=== PATIENT | female | born 1955 | race Caucasian/White ===

== ENCOUNTER 2018-12-25 14:58 | Emergency (ER) | payer MEDICARE, OTHER, SELFPAY ==
[2018-12-25 14:59] VITALS: BP 126/82; PULSE 133; RESP 18; TEMP 35.9; O2SAT 94; BMI 34.4
--- NOTE | 2018-12-25 15:25 | ED.VIS.GEN ---
History of Present Illness Chief Complaint: Nausea/Vomiting Detail of Chief Complaint: Abdominal pain, nausea, vomiting, dizziness Informant: Patient, Family Onset: - - Several weeks Timing: Waxes and wanes Current Severity: Moderate Maximum Severity: Moderate Narrative: Patient presents with chief complaint of nausea, vomiting, abdominal pain, and dizziness. She states that one month ago when she was in [place] she went to an urgent care because she did not feel well. She was given an antibiotic for UTI. This caused increased abdominal pain and diarrhea. She traveled to [place] and went to an urgent care there with these complaints. An ultrasound was performed that showed a 5 cm mass in her liver. She was transferred to a tertiary center where MRI and CT scan were performed. She states that it appears there is only liver masses and no other spread of what is presumed to be liver cancer. Patient then went on vacation with her family to [place]. She went to the emergency room there with abdominal pain. She was given a muscle relaxant and Pyridium for abdominal spasms. She is been taking ibuprofen 600 mg. Patient is now back in the [facility] where her son and [id number] live. She has an appointment with an oncologist at [facility] tomorrow afternoon at 2 PM. Patient presents with continued abdominal pain, nausea, and vomiting. She states she really wants to make this appointment at [facility] tomorrow and was concerned about how weak she is becoming. She has not noted fever or chills. She denies bloody stool. - Past Medical History (1) Liver cancer Status: Acute Past Medical History - Allergies and Home Meds Allergies/Adverse Reactions: Allergies No Known Allergies Allergy (Verified 12/25/18 14:59) Prior records reviewed: Yes Past Medical History: - - Reviewed Surgical History: - - Tubal ligation Lives: Spouse/ Significant Other Review of Systems General: Denies: Chills, Fever Cardiovascular: Denies: Chest pain Respiratory: Denies: Dyspnea, Cough Gastrointestinal: Reports: Nausea, Vomiting, - - Previous diarrhea now resolved. Genitourinary: Denies: Dysuria, Hematuria Skin: Denies: Rash Neurological: Reports: Weakness - Generalized weakness. Denies: Headache Physical Exam Vital Signs/Narrative: Vital Signs Temp Pulse Resp BP Pulse Ox 12/25/18 14:59 96.6 F L 133 H 18 126/82 H 94 General: Well nourished, Well developed Eyes: Perrl ENT: Dry mucous membranes Cardiovascular: Regular rhythm, Tachycardia Respiratory: No distress, CTA bilaterally Abdomen: Soft, - - Mild diffuse tenderness.. Negative for: Guarding, Rebound tenderness Extremities: Nontender Skin: Normal color Neurological: Alert, Oriented x3 Psychological: Normal affect Diagnostic/Tx/Re-eval Impressions Abdomen Ultrasound 12/25/18 17:41 IMPRESSION: 1. Prominent heterogenous liver. There are 2 solid masses as well as a cyst within the liver as above. 2. Gallstones without secondary evidence of acute cholecystitis. 3. Otherwise normal abdominal ultrasound. Electronically Signed: Garcia Allen DO at 18:44 EDT Tel [phone], Service support , 12/25/18 17:41 US Abd [Abdomen Limited] [US] Stat Laboratory Results 12/25/18 12/25/18 12/25/18 15:40 15:40 15:40 WBC Cancelled Corrected WBC Cancelled RBC Cancelled Hgb Cancelled Hct Cancelled MCV Cancelled MCH Cancelled MCHC Cancelled RDW Cancelled RDW Differential Cancelled Plt Count Cancelled MPV Cancelled Immature Gran % (Auto) Cancelled Neut % (Auto) Cancelled Lymph % (Auto) Cancelled Person % (Auto) Cancelled Eos % (Auto) Cancelled Baso % (Auto) Cancelled Absolute Neuts (auto) Cancelled Absolute Lymphs (auto) Cancelled Total Counted Cancelled Neutrophils % (Manual) Cancelled Band Neutrophils % Cancelled Lymphocytes % (Manual) Cancelled Monocytes % (Manual) Cancelled Eosinophils % (Manual) Cancelled Basophils % (Manual) Cancelled Metamyelocytes % Cancelled Myelocytes % Cancelled Promyelocytes % Cancelled Blast Cells % Cancelled Plasma Cell % (Manual) Cancelled Other Cells % Cancelled Nucleated RBCs/100 WBC Cancelled Differential Comment Cancelled Diff Path Review Cancelled Hypersegmented Neuts Cancelled Atypical Lymphocytes Cancelled Reactive Lymphocytes Cancelled Smudge Cells Cancelled Toxic Granulation Cancelled Toxic Vacuolation Cancelled Dohle Bodies Cancelled Shayne Rods Cancelled Platelet Estimate Cancelled Plt Morphology Comment Cancelled RBC Morphology Cancelled Polychromasia Cancelled Hypochromasia Cancelled Poikilocytosis Cancelled Basophilic Stippling Cancelled Anisocytosis Cancelled Microcytosis Cancelled Macrocytosis Cancelled Spherocytes Cancelled Sickle Cells Cancelled Target Cells Cancelled Tear Drop Cells Cancelled Ovalocytes Cancelled Stomatocytes Cancelled [place] Bodies Cancelled Ede Cells Cancelled Bite Cells Cancelled Crenated Cell Cancelled Acanthocytes (Spur) Cancelled Rouleaux Cancelled Schistocytes Cancelled PT Cancelled INR Cancelled APTT Cancelled Sodium Cancelled Potassium Cancelled Chloride Cancelled Carbon Dioxide Cancelled Anion Gap Cancelled BUN Cancelled Creatinine Cancelled Estim Creat Clear Calc Cancelled Est GFR (MDRD) Af Amer Cancelled Est GFR (MDRD) Non-Af Cancelled BUN/Creatinine Ratio Cancelled Glucose Cancelled Calcium Cancelled Total Bilirubin Cancelled Direct Bilirubin Cancelled AST Cancelled ALT Cancelled Alkaline Phosphatase Cancelled Total Protein Cancelled Albumin Cancelled Globulin Cancelled Lipase Cancelled Urine Color Urine Clarity Urine pH Ur Specific [place] Urine Protein Urine Glucose (UA) Urine Ketones Urine Occult Blood Urine Nitrite Urine Bilirubin Urine Urobilinogen Ur Leukocyte Esterase Urine RBC Urine WBC Ur Squamous Epith Cells Urine Bacteria Urine Mucus 12/25/18 12/25/18 12/25/18 16:15 16:15 16:15 WBC 10.0 Corrected WBC RBC 4.29 Hgb 12.8 Hct 37.9 MCV 88.3 MCH 29.8 MCHC 33.8 RDW 13.7 RDW Differential 43.9 Plt Count 116 L MPV 10.6 Immature Gran % (Auto) 2.500 H Neut % (Auto) 73.5 H Lymph % (Auto) 12.4 L Person % (Auto) 10.4 H Eos % (Auto) 0.8 Baso % (Auto) 0.4 Absolute Neuts (auto) 7.3 Absolute Lymphs (auto) 1.24 Total Counted Not Reportable Neutrophils % (Manual) Band Neutrophils % Lymphocytes % (Manual) Monocytes % (Manual) Eosinophils % (Manual) Basophils % (Manual) Metamyelocytes % Myelocytes % Promyelocytes % Blast Cells % Plasma Cell % (Manual) Other Cells % Nucleated RBCs/100 WBC Differential Comment Diff Path Review May foll Hypersegmented Neuts Atypical Lymphocytes Reactive Lymphocytes Smudge Cells Toxic Granulation Toxic Vacuolation Dohle Bodies Shayne Rods Platelet Estimate Plt Morphology Comment RBC Morphology Polychromasia Hypochromasia Poikilocytosis Basophilic Stippling Anisocytosis Microcytosis Macrocytosis Spherocytes Sickle Cells Target Cells Tear Drop Cells Ovalocytes Stomatocytes [place] Bodies [place] Cells Bite Cells Crenated Cell Acanthocytes (Spur) Rouleaux Schistocytes PT 15.4 H INR 1.2 APTT 36.0 Sodium 138 Potassium 4.1 Chloride 107 Carbon Dioxide 23.0 Anion Gap 8 BUN 12 Creatinine 0.59 Estim Creat Clear Calc 85.54 Est GFR (MDRD) Af Amer 131 Est GFR (MDRD) Non-Af 108 BUN/Creatinine Ratio 20.3 H Glucose 101 Calcium 8.6 Total Bilirubin 2.20 H Direct Bilirubin 1.09 H AST 297 H ALT 256 H Alkaline Phosphatase 839 H Total Protein 5.9 L Albumin 2.6 L Globulin 3.3 Lipase 1079 H Urine Color Urine Clarity Urine pH Ur Specific [place] Urine Protein Urine Glucose (UA) Urine Ketones Urine Occult Blood Urine Nitrite Urine Bilirubin Urine Urobilinogen Ur Leukocyte Esterase Urine RBC Urine WBC Ur Squamous Epith Cells Urine Bacteria Urine Mucus 12/25/18 16:25 WBC Corrected WBC RBC Hgb Hct MCV MCH MCHC RDW RDW Differential Plt Count MPV Immature Gran % (Auto) Neut % (Auto) Lymph % (Auto) Person % (Auto) Eos % (Auto) Baso % (Auto) Absolute Neuts (auto) Absolute Lymphs (auto) Total Counted Neutrophils % (Manual) Band Neutrophils % Lymphocytes % (Manual) Monocytes % (Manual) Eosinophils % (Manual) Basophils % (Manual) Metamyelocytes % Myelocytes % Promyelocytes % Blast Cells % Plasma Cell % (Manual) Other Cells % Nucleated RBCs/100 WBC Differential Comment Diff Path Review Hypersegmented Neuts Atypical Lymphocytes Reactive Lymphocytes Smudge Cells Toxic Granulation Toxic Vacuolation Dohle Bodies Shayne Rods Platelet Estimate Plt Morphology Comment RBC Morphology Polychromasia Hypochromasia Poikilocytosis Basophilic Stippling Anisocytosis Microcytosis Macrocytosis Spherocytes Sickle Cells Target Cells Tear Drop Cells Ovalocytes Stomatocytes [place] Bodies Ede Cells Bite Cells Crenated Cell Acanthocytes (Spur) Rouleaux Schistocytes PT INR APTT Sodium Potassium Chloride Carbon Dioxide Anion Gap BUN Creatinine Estim Creat Clear Calc Est GFR (MDRD) Af Amer Est GFR (MDRD) Non-Af BUN/Creatinine Ratio Glucose Calcium Total Bilirubin Direct Bilirubin AST ALT Alkaline Phosphatase Total Protein Albumin Globulin Lipase Urine Color DARK YELLOW Urine Clarity Clear Urine pH 6.0 Ur Specific [place] 1.010 Urine Protein 30 H Urine Glucose (UA) Normal Urine Ketones 15 H Urine Occult Blood 10 H Urine Nitrite Positive H Urine Bilirubin 6 H Urine Urobilinogen 8 H Ur Leukocyte Esterase 500 H Urine RBC 0 SEEN Urine WBC 10-25 SEEN Ur Squamous Epith Cells 0-5 SEEN Urine Bacteria 1+ Urine Mucus 0 SEEN - Medical Decision Making Patient was given 2 doses of morphine here along with Zofran for nausea control. On repeat evaluation she feels significantly improved. Test results were discussed with her and at bedside. She does have evidence of pancreatitis as well as a urinary tract infection. She was given a dose of IV Rocephin for her UTI and a urine culture was sent. Patient is very concerned about making her doctor's appointment at the [facility] tomorrow afternoon at 2 PM. I offered to call [facility] to see if I could transfer her there for pancreatitis, however could not assure her that her doctor would see her at the same time tomorrow. At this time she is refusing admission. She will be sent home with pain medication and nausea meds along with antibiotics. She is to follow a bland diet and follow-up with her doctor tomorrow as scheduled. She is encouraged to return for any worsening symptoms or concerns. ED Disposition - Plan for ED Patient: Disposition: Home or Assisted Living Diagnosis: Pancreatitis, Liver masses, Cystitis Instructions: Pancreatitis, Urinary Tract Infections in Women Prescriptions: Cephalexin [Keflex] 500 mg PO Q6 #20 capsule Oxycodone [Oxyir] 5 mg PO Q6H PRN PRN 3 Days #20 tablet PRN Reason: Pain Ondansetron [Zofran Odt] 4 mg PO Q8H PRN PRN #10 tablet PRN Reason: Nausea Additional Instructions: Follow-up with your specialist tomorrow as scheduled.
[2018-12-25] MEDS: 0.9% Normal Saline 1,000 ML 150 ML IV (15:46)
[2018-12-25] MEDS: 0.9% Normal Saline 1,000 ML 1000 ML IV (15:46)
[2018-12-25] MEDS: Ondansetron 4 MG/2 ML Vial IV ×2 (15:46→21:24)
[2018-12-25] MEDS: Morphine 4 MG/ML Syringe IV ×3 (15:46→21:24)
--- NOTE | 2018-12-25 16:10 | NURSING ---
Addendum entered by Karley Garcia 12/25/18 16:24: CBCD HEMOLIZED, CBCD CLOTTED Original Note: COAGS HEMOLIZED, CBCD TOO SHORT
[2018-12-25 16:30] LABS: Basophil# 0.04 X10^3/uL; Basophil% 0.4 % (0-1); Hemoglobin 12.8 g/dl (12.0-15.0); Mean Platelet Vol. 10.6 fl (6.2-12.0); Platelet Count 116 K/mm3 (150-450)
[2018-12-25 16:30] LABS: Mucous, Urine 0 SEEN /hpf (<or=2+); Red Blood Cells-Urine 0 SEEN /hpf (0-5)
[2018-12-25 16:31] LABS: Glucose, Dipstick Normal (Normal); Ketone-Dipstick 15 mg/dl (Negative); Leukocyte Esterase-Dipstick 500 /ul (Negative); Nitrite-Dipstick Positive (Negative); Occult Blood-Urine 10 /ul (Negative); Protein-Dipstick 30 mg/dl (Negative); Urine Clarity Clear (Clear); Urine Urobilinogen 8 mg/dl (Normal)
[2018-12-25 16:37] LABS: Color, Urine DARK YELLOW (Yellow); Urine Bilirubin Dipstick 6 mg/dL (Negative)
[2018-12-25 16:39] LABS: Hematocrit 37.9 % (37-47); Mean Corp Hgb Conc 33.8 g/gl (32-36); Mean Corpuscular Hgb 29.8 pg (27.0-32.0); Mean Corpuscular Volume 88.3 fL (81-99); Red Blood Count 4.29 M/mm3 (4.2-5.4)
[2018-12-25 16:41] LABS: RBC Distribution Width CV 13.7 % (11.6-14.6); RBC Distribution Width SD 43.9 fl (35.1-43.9)
[2018-12-25 16:42] LABS: Absolute Neutrophil Count 7.3 X10^3/uL (2.0-7.7); Eosinophils% 0.8 % (0-5); Lymphocyte # 1.24 X10^3/ul (4.0); Lymphocyte % 12.4 % (19-41); Monocyte% 10.4 % (0-10); Neutrophil # 7.31 X10^3/uL (2.7-7.7); Neutrophil % 73.5 % (47-70); POSITIVE COUNT YES; POSITIVE DIFFERENTIAL NO; POSITIVE MORPHOLOGY YES
[2018-12-25 16:43] LABS: Absolute Lymphocyte Count 1.24 X10^3/ul (0.83-4.51); Eosinophil# 0.08 X10^3/uL; Monocyte# 1.04 X10^3/uL
[2018-12-25 16:52] LABS: International Normalized Ratio 1.2; Prothrombin Time (Protime)PT. 15.4 SECONDS (11.7-14.9)
[2018-12-25 17:00] VITALS: BP 146/86; PULSE 100; RESP 20; O2SAT 93
[2018-12-25 17:16] LABS: AST(SGOT) 297 U/L (15-37); Alanine Aminotransfer ALT/SGPT 256 U/L (13-56); Albumin, Serum 2.6 g/dL (3.2-5.0); Alkaline Phosphatase 839 U/L (45-117); Anion Gap 8 (5-15); BUN 12 mg/dL (7-18); BUN/Creat Ratio 20.3 RATIO (10-20); Bilirubin, Direct 1.09 mg/dL (0.00-0.30); Calcium,Total 8.6 mg/dL (8.5-10.1); Chloride 107 mmol/L (98-107); Creatinine, Serum 0.59 mg/dL (0.55-1.02); EST Glomerular Filtration Rate 108 mL/min (>60); Est Glom Filt Rate - Afr Amer 131 mL/min (>60); Estimated Creatinine Clearance 85.54 ml/min; Globulin 3.3 g/dL (2.2-4.2); Glucose 101 mg/dL (74-106); Lipase 1079 U/L (73-393); Potassium 4.1 mmol/L (3.5-5.1); Protein, Total 5.9 g/dL (6.4-8.2); Sodium Level 138 mmol/L (136-145)
[2018-12-25 17:27] LABS: Bacteria 1+ /hpf (None Seen); Squamous Epithelial Cells - UA 0-5 SEEN /hpf (5-10); White Blood Cells 10-25 SEEN /hpf (0-5)
--- NOTE | 2018-12-25 17:41 | US_ITS ---
STUDY: ABDOMINAL ULTRASOUND - RIGHT UPPER QUADRANT REASON FOR VISIT: Female, 63 years old. Upper abdominal pain beginning after taking antibiotics a few weeks ago. TECHNIQUE: Ultrasound evaluation of the right upper quadrant was performed with real-time and static null-scale imaging. TECHNICAL QUALITY: Adequate. COMPARISON: None. FINDINGS: Liver: The liver measures 17.7 cm. There is a heterogeneous echogenicity of the liver. The bile ducts are within normal limits. There is hepatic color flow. The direction of portal flow is hepatopetal. There is a 5.5 x 5.0 x 4.5 cm echogenic mass with hypoechoic center in the lower left liver, segment 3. In the right liver there is a 2.1 x 1.6 x 2 cm cyst as well as a ill-defined 3.1 x 2.8 x 2.2 cm echogenic focus with hypoechoic rim seen just anterior to the cyst. Gallbladder: Normal distended gallbladder. The gallbladder wall measures 3 mm. There is a negative sonographic Razo's sign. There is no pericholecystic fluid. There are multiple tiny gallstones. Common Bile Duct (C.B.D.): The common bile duct measures 7 mm. Pancreas: Normal size of the head, body and proximal tail of the pancreas. The distal tail is obscured by bowel gas. There is normal echogenicity of the pancreas. There is no demonstrated pancreatic mass or cyst. Right Kidney: Normal size of the right kidney. The right kidney measures 10.8 cm. Normal renal cortex. The right cortex measures 1.0 cm. There is no demonstrated renal mass or cyst. There is no right hydronephrosis. US/Abdomen Limited IMPRESSION: 1. Prominent heterogenous liver. There are 2 solid masses as well as a cyst within the liver as above. 2. Gallstones without secondary evidence of acute cholecystitis. 3. Otherwise normal abdominal ultrasound. Electronically Signed: Garcia Allen DO at 18:44 EDT Tel [phone], Service support ,
[2018-12-25] MEDS: Ceftriaxone 1 GM/50 ML BAG IV (18:00)
[2018-12-25 19:23] VITALS: BP 139/75; PULSE 93; RESP 18; O2SAT 91
[2018-12-25 21:25] VITALS: BP 147/77; PULSE 95
[2018-12-27 13:50] LABS: Pathologist Review Reviewed
== END 2018-12-25 22:00 | disposition home or self-care (01) ==
PROVIDERS: Emergency Provider Emergency Medicine
DX: K85.90 Acute pancreatitis without necrosis or infection, unspecified (principal); R16.0 Hepatomegaly, not elsewhere classified; N30.90 Cystitis, unspecified without hematuria
CPT/HCPCS: 76705; 80048; 80076; 81001; 83690; 85025; 85610; 85730; 87086; 87088; 96361; 96365; 96366; 96375; 96376; 99285; J7030; A4216; J2405

== ENCOUNTER 2018-12-31 15:00 | Inpatient (IN) | payer MEDICARE, OTHER, SELFPAY ==
[2018-12-31] VITALS (19 sets, daily range): BP systolic 113–153; BP diastolic 54–95; PULSE 108–124; RESP 18–27; TEMP 36.8–37.2; O2SAT 88–96; BMI 32.1; BMI 36.8; BMI 36.9
--- NOTE | 2018-12-31 15:08 | EKG12_ITS ---
Test Reason : Blood Pressure : / mmHG Vent. Rate : 118 BPM Atrial Rate : 118 BPM P-R Int : 168 ms QRS Dur : 078 ms QT Int : 308 ms P-R-T Axes : 042 -49 029 degrees QTc Int : 431 ms Sinus tachycardia Indeterminate axis Low voltage QRS Cannot rule out Inferior infarct , age undetermined Possible Anterolateral infarct , age undetermined Abnormal ECG Confirmed by CHRISTAL BERGER, ROBSON ([id number]), editor book SOLIS FERGUSON ([id number]) on 01/02/2019 1:43:25 PM Referred By: ANTOINETTE Confirmed By:ROBSON SIEGEL MD
--- NOTE | 2018-12-31 15:20 | CT_ITS ---
STUDY: CT BRAIN WITHOUT CONTRAST REASON FOR EXAM: Female, 63 years old. Mental status change RADIATION DOSAGE (If Supplied By Facility): CTDIvol = ( 44.99 ) mGy, DLP = ( 798.92 ) mGycm TECHNIQUE: Transaxial CT imaging of the brain was performed without administration of intravenous contrast material. Individualized dose optimization techniques were used for this CT. COMPARISON: No relevant priors. FINDINGS: Normal soft tissue structures. Normal calvarium. Normal size ventricles and extra-axial spaces for the patient's age. Normal white matter tracts of the cerebral hemispheres. There is a 4 mm hypodensity in the region of the left basal ganglia. Normal brainstem. Normal cerebellum. There is no intracranial hemorrhage. There are no findings of an acute ischemic infarction. Normal visualized paranasal sinuses. CT/Brain/Head without Contrast IMPRESSION: No acute findings, if there is still clinical concern for metastatic disease then a MRI brain with and without contrast exam would be recommended 4 mm hypodensity within the left basal ganglia which can be prominent sulcus versus old lacunar infarct Electronically Signed: Nic Michael, at 17:34 EDT Tel , Service support ,
--- NOTE | 2018-12-31 15:20 | RAD_ITS ---
STUDY: X-RAY CHEST REASON FOR EXAM: Female, 63 years old. Altered level of consciousness, unable to follow instructions TECHNIQUE: AP COMPARISON: None. FINDINGS: EKG leads project over the chest. Lungs are underexpanded with bibasilar atelectasis. There is no demonstrated pleural abnormality. Normal size heart. Normal mediastinum and loki. Normal visualized pulmonary arteries. Normal visualized aortic arch and descending thoracic aorta. No acute bony process. There is no demonstrated abnormality of the visualized soft tissue structures of the upper abdomen. RAD/Chest 1 View (Portable) IMPRESSION: 1. Hypoinflation with bibasilar atelectasis. Electronically Signed: J Carlos Carmona MD at 15:45 EDT , Service support ,
--- NOTE | 2018-12-31 15:21 | ED.VISSUMM ---
- ER Visit Summary Date of Service: 12/31/18 Chief Complaint: Altered mental status History of Present Illness: The patient is a 63 F presenting with altered mental status. Patient presents per EMS with decreased responsiveness. Patient is a new patient of Dr. 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 She is scheduled to start chemotherapy tomorrow. She was seen by Dr. Lr on Tuesday and started on MS Contin, Roxanol, and Haldol. Family states they have been giving her the MS Contin every 8 hrs and the Roxanol every 3 hrs and Haldol for nausea. They have noticed progressively increasing fatigue and decreased responsiveness. Physical Examination: Vitals are stable. Patient is afebrile. Alert no acute distress. HEENT exam is unremarkable. Neck is supple. Lungs are clear and equal bilaterally. Heart is regular and tachycardic Abdomen is soft distended with diffuse tenderness, no rebound or guarding Extremities are unremarkable. Skin is warm and dry. Erythema with blistering left hip No focal neurologic deficit. Opens eyes to voice. Follows commands. Remainder of exam is unremarkable. Emergency Department Course and Treatment: Family notes that she has been using a heating pad and believes that the heating pad was overlying her left hip. EKG is sinus at a rate of 118. She was given IV fluids, Narcan. She is now awake and alert following Narcan. She is complaining of severe abdominal pain. CBC normal except platelets 78. Chemistries show sodium 128, potassium 5.3, BUN 39, creatinine 1.07. Liver enzymes show total bili 5.9, direct bili 4.4, alk phos 949, ALT 245, AST 997. Urinalysis shows positive nitrite, 0-5 white blood cells. Troponin is negative. Lactic acid 4.4. D-dimer over 20. Ammonia 95. Patient was given IV fluids. She was given fentanyl IV. Chest x-ray shows hypoinflation, atelectasis. CTA chest shows limited by patient motion artifact. No central or obvious segmental pulmonary embolism. Trace bilateral pleural effusions. Bilateral lower lobe atelectasis. Hepatomegaly with hepatic steatosis. Patchy parenchymal atelectasis. Blood cultures were sent. She was given Zosyn IV. Discussed with Dr. Brumfield. Patient will not start chemotherapy tomorrow. He is concerned about possible DIC and patient can be admitted to [facility]. Discussed CODE STATUS with family. They are aware of the severity of her illness and are awaiting discussion with her son. She will be full code until the remainder of her family arrives. Discussed with the hospitalist for admission. Disposition: Admission Impression: Elevated liver enzymes, neuroendocrine tumor, concern for DIC This note was generated with [employer] dictation software. It may contain incorrect words, spelling, and punctuation that were not noted in review of the chart prior to signing ED Disposition - Plan for ED Patient: Referrals: [facility] Doctor,Out of [Primary Care Provider] -
[2018-12-31 15:52] LABS: Absolute Nucleated RBC Count 0.73 10^3/uL (0-5); Hematocrit 41.4 % (37-47); Hemoglobin 13.5 g/dL (12.0-15.0); Mean Corp Hgb Conc 32.6 g/dL (32-36); Mean Corpuscular Hgb 29.7 pg (27.0-32.0); Mean Corpuscular Volume 91.2 fL (81-99); Mean Platelet Vol. 10.7 fl (6.2-12.0); POSITIVE COUNT YES; POSITIVE MORPHOLOGY YES; Platelet Count 78 K/mm3 (150-450); RBC Distribution Width CV 14.6 % (11.6-14.6); RBC Distribution Width SD 47.5 fl (35.1-43.9); Red Blood Count 4.54 M/mm3 (4.2-5.4)
[2018-12-31 15:53] LABS: Differential Indicated MANUAL DIFF; NRBC Flagged by Analyzer 8.9 % (0-5)
[2018-12-31] MEDS: Naloxone 0.4 MG/ML Syringe IV (16:04)
[2018-12-31 16:15] LABS: Red Blood Cells-Urine 0 SEEN /hpf (0-5)
[2018-12-31] MEDS: 0.9% Normal Saline 1,000 ML 999 ML IV ×2 (16:17→20:15)
[2018-12-31] MEDS: fentaNYL 100 MCG/2 ML Ampul 50 MCG IV (16:18)
[2018-12-31 16:24] LABS: Glucose, Dipstick Normal (Normal); Ketone-Dipstick 5 mg/dl (Negative); Leukocyte Esterase-Dipstick 25 /ul (Negative); Nitrite-Dipstick Positive (Negative); Occult Blood-Urine 25 /ul (Negative); Protein-Dipstick 30 mg/dl (Negative); Urine Clarity Clear (Clear); Urine Urobilinogen 8 mg/dl (Normal)
[2018-12-31 16:29] LABS: AST(SGOT) 997 U/L (15-37); Alanine Aminotransfer ALT/SGPT 245 U/L (13-56); Albumin, Serum 2.5 g/dL (3.2-5.0); Alkaline Phosphatase 949 U/L (45-117); Anion Gap 10 (5-15); BUN 39 mg/dL (7-18); BUN/Creat Ratio 36.4 RATIO (10-20); Bilirubin, Direct 4.46 mg/dL (0.00-0.30); Calcium,Total 8.7 mg/dL (8.5-10.1); Chloride 95 mmol/L (98-107); Creatinine, Serum 1.07 mg/dL (0.55-1.02); EST Glomerular Filtration Rate 55 mL/min (>60); Est Glom Filt Rate - Afr Amer 66 mL/min (>60); Estimated Creatinine Clearance 56.68 ml/min; Globulin 3.3 g/dL (2.2-4.2); Glucose 117 mg/dL (74-106); Lactic Acid 4.4 mmol/L (0.4-2.0); Potassium 5.3 mmol/L (3.5-5.1); Protein, Total 5.8 g/dL (6.4-8.2); Sodium Level 128 mmol/L (136-145)
[2018-12-31 16:30] LABS: Corrected WBC 7.1 K/mm3 (4.4-11.0); Eosinophil 2 % (0-5); Lymphocyte 33 % (19-41); Monocyte 6 % (0-10); Neutrophil-Band 13 % (0-5); Neutrophil-Segmented 46 % (47-70); Nucleated Red Bld Cells,Manual 14 % (0-5)
[2018-12-31 16:31] LABS: Platelet Estimate MOD DEC (ADEQ); Polychromasia 1+; Red Cell Morphology N CYTIC NORMAL (NORM C&C)
[2018-12-31 16:32] LABS: Color, Urine DARK YELLOW (Yellow); Urine Bilirubin Dipstick 6 mg/dL (Negative)
[2018-12-31 16:33] LABS: White Blood Cells 0-5 SEEN /hpf (0-5)
[2018-12-31 16:33] LABS: Absolute Lymphocyte Count 2.34 X10^3/uL (0.83-4.51); Absolute Neutrophil Count 4.2 X10^3/uL (2.0-7.7)
--- NOTE | 2018-12-31 16:36 | CT_ITS ---
STUDY: CTA CHEST REASON FOR EXAM: Female, 63 years old. Severe chest pain, mental status change RADIATION DOSAGE (If Supplied By Facility): CTDIvol = ( 19.03 ) mGy, DLP = ( 2041.68 ) mGycm TECHNIQUE: The examination was performed with the intravenous administration of 100 IV Isovue 370. Post-processing of the angiographic images was performed, with multiplanar reformation and 3D reconstruction. Individualized dose optimization techniques were used for this CT. COMPARISON: None. FINDINGS: Exam is limited by patient motion artifact. There is no demonstrated pulmonary embolism. Normal thoracic aorta and visualized great vessels. There is no demonstrated aortic dissection. Normal heart and pericardium. Normal mediastinum. Normal hilar regions. There are trace bilateral pleural effusions. There are patchy areas of atelectasis in bilateral lung bases. Normal chest wall structures. No acute bony process. The liver is enlarged and diminished in density. CT/CTA Chest W/WO Contrast IMPRESSION: 1. Limited by patient motion artifact. No central or obvious segmental pulmonary embolism. 2. Trace bilateral pleural effusions. 3. Bilateral lower lobe atelectasis. 4. Hepatomegaly with hepatic steatosis. 5. Patchy parenchymal atelectasis. Electronically Signed: J Carlos Carmona MD at 17:33 EDT , Service support ,
--- NOTE | 2018-12-31 16:36 | CT_ITS ---
STUDY: CT ABDOMEN AND PELVIS WITH CONTRAST REASON FOR EXAM: Female, 63 years old. Abdominal pain, tumor RADIATION DOSAGE (If Supplied By Facility): CTDIvol = ( 19.03 ) mGy, DLP = ( 2041.68 ) mGycm TECHNIQUE: Transaxial images were obtained from the dome of the diaphragm to the symphysis pubis without oral contrast. 100 IV Isovue 370 was administered. Sagittal and coronal images were reconstructed. Individualized dose optimization techniques were used for this CT. COMPARISON: None. FINDINGS: There is small left pleural effusion. There is left basilar subsegmental atelectasis. There is mild bibasilar subsegmental atelectasis. There is linear subsegmental atelectasis lingula and right middle lobe. The visualized portions of the heart are within normal limits. There are innumerable hypodense hepatic masses. The largest measures 6.1 x 6.9 cm within the left lobe of the liver. Normal gallbladder and extrahepatic biliary system. Normal spleen. There is 6 mm hypodense lesion within the tail of the pancreas. There is also an inhomogeneous hypodensity within the body of pancreas possible additional pancreatic lesions. Normal bilateral adrenal glands. Normal right kidney. Normal left kidney. Normal visualized stomach. Normal small intestine. There is colonic diverticulosis no evidence for acute diverticulitis The appendix is visualized and appears normal. Normal abdominal aorta. Normal inferior vena cava. Normal retroperitoneum. Normal urinary bladder. Normal abdominal wall. There is mild bony sclerosis SI joints. There are degenerative changes of the lower thoracic and lumbar spine. CT/Abdomen/Pelvis W IV Cont ONLY IMPRESSION: Diffuse hepatic metastases 6 mm hypodense possible malignant lesion within the tail of the pancreas and questionable additional lesions in the body of the pancreas Small left pleural effusion Extensive colonic diverticulosis without evidence for diverticulitis Small left pleural effusion Scattered areas of subsegmental atelectasis Multilevel degenerative changes lumbar spine, mild bilateral sacroiliitis Electronically Signed: Nic Michael, at 17:53 EDT Tel , Service support ,
[2018-12-31 16:37] LABS: D-Dimer Quantitative (DVT/PE) > 20.00 FEU/ug/m (0.27-0.49)
[2018-12-31 16:37] LABS: Bacteria 1+ /hpf (None Seen); Squamous Epithelial Cells - UA 5-10 SEEN /hpf (5-10)
[2018-12-31 16:38] LABS: Fine Granular Cast- Urine 0-5 SEEN /lpf (0-5); Hyaline Cast 0-5 SEEN /lpf (0-5); Mucous, Urine RARE /hpf (<or=2+)
--- NOTE | 2018-12-31 16:45 | ED.RN ---
LAB CALLS WITH CRITICAL RESULT, D-DIMER >20, DR. CURRY MADE AWARE.
--- NOTE | 2018-12-31 18:32 | NURSING ---
verbal order from MD maldonado to stop IV fluid bolus after 2nd liter infused after her consult call with Dr. Brumfield.
[2018-12-31 18:43] LABS: International Normalized Ratio 1.5; Prothrombin Time (Protime)PT. 17.9 SECONDS (11.7-14.9)
[2018-12-31 18:44] LABS: Partial Thromboplast Time 39.4 Seconds (24.1-36.2)
--- NOTE | 2018-12-31 19:32 | PCM.HP.STD ---
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 Lr recently came to ED with altered mental status, decreased responsiveness and confusion. As per the family, they saw Dr. Arroyo on last Tuesday and was given MS Contin, Roxanol and Haldol. She was getting MS Contin every 8 hours along with Roxanol every 8 hours Haldol for nausea resulting into decreased responsiveness. The patient was given Marcaine that improved her responsiveness. In ED, she is tachycardic, heart rate 118/min, respiratory rate 25-27 and pulse ox 88% on room air. Lactic acid is 4.4 along with elevated liver enzymes, total bili 5.9 went up from 2.2 last week mainly direct hyperbilirubinemia along with alk phos 950, ALT 245, AST 1000. Furthermore, patient had CTPA and CT abdomen and CT brain. CT abdomen shows diffuse hepatic metastases with 6 mm hypodense lesion in in body of pancreas possible malignant lesion. CTPA was negative for PE but trace bilateral pleural effusion and bilateral lower lobe atelectasis. CT brain did not show any acute finding. Past Medical History Past Medical History (Chronic Problems): Chronic Problems Liver cancer (Chronic) Allergies No Known Allergies Allergy (Verified 12/31/18 15:08) Home Medications: Ambulatory Orders Medication Instructions Recorded Haloperidol [Haldol] 0.5 mg PO BID 12/31/18 Ondansetron [Zofran Odt] 8 mg PO Q8H PRN PRN 12/31/18 Sennosides [Senna] 2 tab PO DAILY 12/31/18 morphine SR tablet [MS Contin] 15 mg PO Q8H 12/31/18 morphine solution (IR) [Roxanol 5 - 10 mg PO Q3H PRN 12/31/18 (IR oral solution)] Surgical History: - - Tubal ligation Smoking Status: Never smoker Alcohol: None Drugs: None Review of Systems Respiratory: Reports: Shortness of Breath Unable to obtain accurate/complete ROS d/t: Patient is very groggy, confused VTE Information - Inpt Only VTE Present on Admission: No VTE Mechan Device Prophylaxis: None VTE Pharm Prophylaxis ordered?: Yes Patient Problems: Active and Suspected Problems acute on chr liver failure (Acute) Severe sepsis (Acute) - Physical Exam General: Confused, Disoriented, Lethargic HEENT: Atraumatic, PERRLA, EOMI, Normocephalic Oral: Dry Mucosa Neck: Supple, No JVD, Negative Carotid Bruits Lungs: No rhonchi, No wheeze, No rales, Diminished - Air entry is diminished in bilateral lung bases. Cardiovascular: Regular Rhythm, Normal S1, Normal S2, No murmurs, Tachycardic Abdomen: Bowel Sounds Present, Soft, Non-Distended, Tender - Tenderness present mainly over right upper quadrant and mid abdomen. Extremities: No edema, Capillary Refill Less than 3 Seconds Skin: No rashes, No breakdown Musculoskeletal: No Tenderness to Palpation of Joints or Extremities, Arthritic Changes Neurological: Cranial nerves II-XII grossly intact, Deep Tendon Reflexes 2+/4 and Symmetrical, - - Patient is lethargic and groggy Psych/Mental Status: Normal Affect, Appropriate Vital Signs Temp Pulse Resp BP Pulse Ox 98.3 F 120 H 20 H 140/79 H 92 12/31/18 18:24 12/31/18 19:00 12/31/18 19:00 12/31/18 19:00 12/31/18 19:00 Oxygen Flow Rate (L/min) 2 Oxygen Delivery Method Nasal Cannula Weight: 223 lb 8.78 oz Body Mass Index (BMI) 32.1 Laboratory Tests Past 24 Hrs 12/31/18 12/31/18 12/31/18 15:30 15:30 15:30 WBC Not Reportable Corrected WBC 7.1 RBC 4.54 Hgb 13.5 Hct 41.4 MCV 91.2 MCH 29.7 MCHC 32.6 RDW Std Deviation 47.5 H RDW Coeff of Melissa 14.6 Plt Count 78 L MPV 10.7 Neut % (Auto) Not Reportable Absolute Neuts (auto) 4.2 Absolute Lymphs (auto) 2.34 Absolute Nucleated RBC 0.73 Neutrophils % (Manual) 46 L Band Neutrophils % 13 H Lymphocytes % (Manual) 33 Monocytes % (Manual) 6 Eosinophils % (Manual) 2 Nucleated RBC % 8.9 H Nucleated RBCs/100 WBC 14 H Diff Path Review May foll Platelet Estimate MOD DEC RBC Morphology N CYTIC Polychromasia 1+ PT INR APTT D-Dimer Quant (PE/DVT) Sodium 128 L Potassium 5.3 H Chloride 95 L Carbon Dioxide 23.0 Anion Gap 10 BUN 39 H Creatinine 1.07 H Estim Creat Clear Calc 56.68 Est GFR (MDRD) Af Amer 66 Est GFR (MDRD) Non-Af 55 L BUN/Creatinine Ratio 36.4 H Glucose 117 H Lactic Acid 4.4 H* Calcium 8.7 Total Bilirubin 5.90 H Direct Bilirubin 4.46 H AST 997 H ALT 245 H Alkaline Phosphatase 949 H Ammonia Troponin I < 0.015 Total Protein 5.8 L Albumin 2.5 L Globulin 3.3 Urine Color Urine Clarity Urine pH Ur Specific [place] Urine Protein Urine Glucose (UA) Urine Ketones Urine Occult Blood Urine Nitrite Urine Bilirubin Urine Urobilinogen Ur Leukocyte Esterase Urine RBC Urine WBC Ur Squamous Epith Cells Urine Bacteria Hyaline Casts Fine Granular Casts Urine Mucus 12/31/18 12/31/18 12/31/18 15:30 15:30 15:50 WBC Corrected WBC RBC Hgb Hct MCV MCH MCHC RDW Std Deviation RDW Coeff of Melissa Plt Count MPV Neut % (Auto) Absolute Neuts (auto) Absolute Lymphs (auto) Absolute Nucleated RBC Neutrophils % (Manual) Band Neutrophils % Lymphocytes % (Manual) Monocytes % (Manual) Eosinophils % (Manual) Nucleated RBC % Nucleated RBCs/100 WBC Diff Path Review Platelet Estimate RBC Morphology Polychromasia PT 17.9 H INR 1.5 APTT 39.4 H D-Dimer Quant (PE/DVT) > 20.00 H* Sodium Potassium Chloride Carbon Dioxide Anion Gap BUN Creatinine Estim Creat Clear Calc Est GFR (MDRD) Af Amer Est GFR (MDRD) Non-Af BUN/Creatinine Ratio Glucose Lactic Acid Calcium Total Bilirubin Direct Bilirubin AST ALT Alkaline Phosphatase Ammonia 95.0 H Troponin I Total Protein Albumin Globulin Urine Color Urine Clarity Urine pH Ur Specific [place] Urine Protein Urine Glucose (UA) Urine Ketones Urine Occult Blood Urine Nitrite Urine Bilirubin Urine Urobilinogen Ur Leukocyte Esterase Urine RBC Urine WBC Ur Squamous Epith Cells Urine Bacteria Hyaline Casts Fine Granular Casts Urine Mucus 12/31/18 16:10 WBC Corrected WBC RBC Hgb Hct MCV MCH MCHC RDW Std Deviation RDW Coeff of Melissa Plt Count MPV Neut % (Auto) Absolute Neuts (auto) Absolute Lymphs (auto) Absolute Nucleated RBC Neutrophils % (Manual) Band Neutrophils % Lymphocytes % (Manual) Monocytes % (Manual) Eosinophils % (Manual) Nucleated RBC % Nucleated RBCs/100 WBC Diff Path Review Platelet Estimate RBC Morphology Polychromasia PT INR APTT D-Dimer Quant (PE/DVT) Sodium Potassium Chloride Carbon Dioxide Anion Gap BUN Creatinine Estim Creat Clear Calc Est GFR (MDRD) Af Amer Est GFR (MDRD) Non-Af BUN/Creatinine Ratio Glucose Lactic Acid Calcium Total Bilirubin Direct Bilirubin AST ALT Alkaline Phosphatase Ammonia Troponin I Total Protein Albumin Globulin Urine Color DARK YELLOW Urine Clarity Clear Urine pH 5.0 Ur Specific [place] 1.020 Urine Protein 30 H Urine Glucose (UA) Normal Urine Ketones 5 H Urine Occult Blood 25 H Urine Nitrite Positive H Urine Bilirubin 6 H Urine Urobilinogen 8 H Ur Leukocyte Esterase 25 H Urine RBC 0 SEEN Urine WBC 0-5 SEEN Ur Squamous Epith Cells 5-10 SEEN Urine Bacteria 1+ Hyaline Casts 0-5 SEEN Fine Granular Casts 0-5 SEEN Urine Mucus RARE Assessment/Plan All Active Problems acute on chr liver failure (Acute) Severe sepsis (Acute) The patient is a 63 year old F with 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 Lr recently came to ED with altered mental status, decreased responsiveness and confusion. As per the family, they saw Dr. Arroyo on last Tuesday and was given MS Contin, Roxanol and Haldol. She was getting MS Contin every 8 hours along with Roxanol every 8 hours Haldol for nausea resulting into decreased responsiveness. The patient was given Marcaine that improved her responsiveness. In ED, she is tachycardic, heart rate 118/min, respiratory rate 25-27 and pulse ox 88% on room air. Furthermore, patient had CTPA and CT abdomen and CT brain. CT abdomen shows diffuse hepatic metastases with 6 mm hypodense lesion in in body of pancreas possible malignant lesion. CTPA was negative for PE but trace bilateral pleural effusion and bilateral lower lobe atelectasis. CT brain did not show any acute finding. 1. Elevated lactic acid possible related to severe sepsis or acute on chronic liver failure: Patient has bandemia 13% neutrophils 46% but normal WBC count. The patient is being admitted in ICU as the family wants to keep her alive until his sons arrive from [place] and probably will take about 6 to 8 hours. Patient is on IV fluid normal saline resuscitation. Currently blood pressure 126/91, heart rate 118. Monitor intake and output. On broad-spectrum IV antibiotics Zosyn. MRSA nasal screen. Discussed with Dr. Goodrich. 2. Acute encephalopathy possible related to opioid medication and metabolic/hepatic encephalopathy without coma: Patient is still confused and disoriented. Serum ammonia is 95. Lactulose and Xifaxan ordered. 3. Acute on chronic liver failure secondary to wide metastasis, possible exacerbated by opioids: Hold opioids. Lactic acid is 4.4 along with elevated liver enzymes, total bili 5.9 went up from 2.2 last week mainly direct hyperbilirubinemia along with alk phos 950, ALT 245, AST 1000. Platelet count is 78,000 down from 116,000 last week suggestive of liver failure. Oncologist has been consulted from ER and Dr. Johnson she will see her tomorrow. 4. DVT prophylaxis: On Lovenox 40 mg subcu daily. Goal of life/advance directive: Discussed with the patient's son, Mr. Lee and her sister Ms. Ferraro, patient's [id number] who wants the patient to be alive for about 6 to 8 hours until her other sons arrive from [place]. Patient's family understand in the meantime if she goes into cardiac arrest/respiratory substrate will need full CPR, intubation/vent management and possible central venous catheterization for vasopressor. I think after patient sensori they will make decision on palliative/hospice care. Total time spent in [id number] encounter in discussion of advanced directive 18 minutes. Laboratory Results 12/31/18 15:30: WBC Not Reportable, Corrected WBC 7.1, RBC 4.54, Hgb 13.5, Hct 41.4, MCV 91.2, MCH 29.7, MCHC 32.6, RDW Std Deviation 47.5 H, RDW Coeff of Melissa 14.6, Plt Count 78 L, MPV 10.7, Neut % (Auto) Not Reportable, Absolute Neuts (auto) 4.2, Absolute Lymphs (auto) 2.34, Absolute Nucleated RBC 0.73, Neutrophils % (Manual) 46 L, Band Neutrophils % 13 H, Lymphocytes % (Manual) 33, Monocytes % (Manual) 6, Eosinophils % (Manual) 2, Nucleated RBC % 8.9 H, Nucleated RBCs/100 WBC 14 H, Diff Path Review October, Platelet Estimate MOD DEC, RBC Morphology N CYTIC, Polychromasia 1+ 12/31/18 15:30: Sodium 128 L, Potassium 5.3 H, Chloride 95 L, Carbon Dioxide 23.0, Anion Gap 10, BUN 39 H, Creatinine 1.07 H, Estim Creat Clear Calc 56.68, Est GFR (MDRD) Af Amer 66, Est GFR (MDRD) Non-Af 55 L, BUN/Creatinine Ratio 36.4 H, Glucose 117 H, Calcium 8.7, Total Bilirubin 5.90 H, Direct Bilirubin 4.46 H, AST 997 H, ALT 245 H, Alkaline Phosphatase 949 H, Troponin I < 0.015, Total Protein 5.8 L, Albumin 2.5 L, Globulin 3.3 12/31/18 15:30: Lactic Acid 4.4 H* 12/31/18 15:30: Ammonia 95.0 H 12/31/18 15:30: D-Dimer Quant (PE/DVT) > 20.00 H* 12/31/18 15:50: PT 17.9 H, INR 1.5, APTT 39.4 H 12/31/18 16:10: Urine Color DARK YELLOW, Urine Clarity Clear, Urine pH 5.0, Ur Specific [place] 1.020, Urine Protein 30 H, Urine Glucose (UA) Normal, Urine Ketones 5 H, Urine Occult Blood 25 H, Urine Nitrite Positive H, Urine Bilirubin 6 H, Urine Urobilinogen 8 H, Ur Leukocyte Esterase 25 H, Urine RBC 0 SEEN, Urine WBC 0-5 SEEN, Ur Squamous Epith Cells 5-10 SEEN, Urine Bacteria 1+, Hyaline Casts 0-5 SEEN, Fine Granular Casts 0-5 SEEN, Urine Mucus RARE Clinical Impression(s) from Imaging Studies Brain CT 12/31/18 15:20 IMPRESSION: No acute findings, if there is still clinical concern for metastatic disease then a MRI brain with and without contrast exam would be recommended 4 mm hypodensity within the left basal ganglia which can be prominent sulcus versus old lacunar infarct Chest X-Ray 12/31/18 15:20 IMPRESSION: 1. Hypoinflation with bibasilar atelectasis. Abdomen/Pelvis CT 12/31/18 16:36 IMPRESSION: Diffuse hepatic metastases 6 mm hypodense possible malignant lesion within the tail of the pancreas and questionable additional lesions in the body of the pancreas Small left pleural effusion Extensive colonic diverticulosis without evidence for diverticulitis Small left pleural effusion Scattered areas of subsegmental atelectasis Multilevel degenerative changes lumbar spine, mild bilateral sacroiliitis Chest CTA 12/31/18 16:36 IMPRESSION: 1. Limited by patient motion artifact. No central or obvious segmental pulmonary embolism. 2. Trace bilateral pleural effusions. 3. Bilateral lower lobe atelectasis. 4. Hepatomegaly with hepatic steatosis. 5. Patchy parenchymal atelectasis. Code Visit Inpatient E&M: 03544 Init Hosp L3 Procedures: 84325 Advncd Care Plan 30 Min
[2018-12-31 19:44] LABS: Reflex Lactate? Y
[2018-12-31 20:46] LABS: Bedside Glucose 112 mg/dL (70-110)
[2018-12-31 21:15] LABS: Magnesium 2.6 mg/dL (1.6-2.6)
[2018-12-31] MEDS: Enoxaparin 40 MG/0.4 ML Syringe SC (21:16)
[2018-12-31] MEDS: 0.9% Normal Saline 1,000 ML 125 ML IV (21:17)
[2018-12-31 22:21] LABS: M R Staph aureus DNA By PCR Negative (Negative); Probe Check PASS; Specimen Processing Control PASS
[2019-01-01] VITALS (8 sets, daily range): BP systolic 96–154; BP diastolic 55–99; PULSE 118–122; RESP 12–26; TEMP 36.6–36.9; O2SAT 93–95
[2019-01-01 00:03] LABS: Lactic Acid 2.7 mmol/L (0.4-2.0)
[2019-01-01 03:17] LABS: Reflex Lactate? Y
[2019-01-01 03:51] LABS: Hematocrit 37.6 % (37-47); Hemoglobin 12.5 g/dL (12.0-15.0); Mean Corp Hgb Conc 33.2 g/dL (32-36); Mean Corpuscular Hgb 30.1 pg (27.0-32.0); Mean Corpuscular Volume 90.6 fL (81-99); Mean Platelet Vol. 11.3 fl (6.2-12.0); POSITIVE COUNT YES; POSITIVE MORPHOLOGY YES; Platelet Count 72 K/mm3 (150-450); RBC Distribution Width CV 14.7 % (11.6-14.6); RBC Distribution Width SD 47.8 fl (35.1-43.9); Red Blood Count 4.15 M/mm3 (4.2-5.4)
[2019-01-01 03:53] LABS: International Normalized Ratio 1.7; Prothrombin Time (Protime)PT. 19.8 SECONDS (11.7-14.9)
[2019-01-01] MEDS: 0.9% NaCl Peripheral Flush Adult/Peds IV ×3 (03:53→09:46)
[2019-01-01] MEDS: Morphine 2 MG/ML Syringe IV ×3 (03:53→09:47)
[2019-01-01] MEDS: Ondansetron 4 MG/2 ML Vial IV (03:54)
[2019-01-01 04:21] LABS: Basophil 1 % (0-1); Eosinophil 1 % (0-5); Lymphocyte 25 % (19-41); Metamyelocyte 7 % (0-1); Monocyte 11 % (0-10); Neutrophil-Band 5 % (0-5); Neutrophil-Segmented 50 % (47-70); Nucleated Red Bld Cells,Manual 9 % (0-5)
[2019-01-01 04:22] LABS: Toxic Granulation 1+
[2019-01-01 04:23] LABS: AST(SGOT) 1906 U/L (15-37); Acanthocytes 3+; Alanine Aminotransfer ALT/SGPT 399 U/L (13-56); Albumin, Serum 2.4 g/dL (3.2-5.0); Alkaline Phosphatase 983 U/L (45-117); Anion Gap 12 (5-15); Anisocytosis 3+; BUN 46 mg/dL (7-18); BUN/Creat Ratio 45.1 RATIO (10-20); Bilirubin, Direct 4.57 mg/dL (0.00-0.30); Calcium,Total 8.4 mg/dL (8.5-10.1); Chloride 101 mmol/L (98-107); Creatinine, Serum 1.02 mg/dL (0.55-1.02); EST Glomerular Filtration Rate 58 mL/min (>60); Est Glom Filt Rate - Afr Amer 70 mL/min (>60); Estimated Creatinine Clearance 49.48 ml/min; Globulin 2.8 g/dL (2.2-4.2); Glucose 89 mg/dL (74-106); Macrocytosis 2+; Potassium 5.5 mmol/L (3.5-5.1); Protein, Total 5.2 g/dL (6.4-8.2); Sodium Level 135 mmol/L (136-145)
[2019-01-01 04:24] LABS: Lactic Acid 2.8 mmol/L (0.4-2.0); Polychromasia 1+
[2019-01-01 04:32] LABS: Total Cells Counted 100 (MANUAL DIFF)
[2019-01-01 04:46] LABS: Corrected WBC 7.7 K/mm3 (4.4-11.0)
--- NOTE | 2019-01-01 08:00 | NURSING ---
Dr. Lr present in pt room. He then had lengthy disc w/large pt family(including her eldest son who is the decision maker) regarding pt current condition and pt prognosis. Family indicated per pt wishes, comfort care and hospice consult. many questions answered, much reassurance given.
--- NOTE | 2019-01-01 08:17 | PCM.CONS.B ---
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 Jason regarding a patient with metastatic neuroendocrine tumor and liver metastasis presenting with intractable pain & change in mental status. My final recommendation will be communicated to the ICU team and also by electronic medical records. - Reason for Consult History of Present Illness Date of Admission: 01/01/19 Chief Complaint: Changing mental status The patient is a 63 year old F with recent diagnosis of neuroendocrine cancer of unknown origin (possible pancreas) with wide metastasis to liver, came to ED with altered mental status, decreased responsiveness and confusion. I saw the patient on last Tuesday or MRI scan of the brain and for intractable abdominal pain. The medication was increased MS Contin 15mg 3 8 hours, Roxanol and Haldol as needed for pain and agitation. She was getting MS Contin every 8 hours along with Roxanol every 8 hours Haldol for nausea resulting into decreased responsiveness on Tuesday. Patient was started to sleep more on Tuesday but her pain agitation symptom had improved. He had eaten and drank very little this weekend In ED, she is tachycardic, heart rate 118/min, respiratory rate 25-27 and pulse ox 88% on room air. Lactic acid is 4.4 along with elevated liver enzymes, total bili 5.9 went up from 2.2 last week mainly direct hyperbilirubinemia along with alk phos 950, ALT 245, AST 1000. Secondary to progression of disease and possible shock liver. She was given Narcan and she wake up a little with intractable pain. She did not have fever, cough, or shortness of breath this weekend. Furthermore, patient had CTPA and CT abdomen and CT brain. CT abdomen shows diffuse hepatic metastases with 6 mm hypodense lesion in in body of pancreas possible malignant lesion. CTPA was negative for PE but trace bilateral pleural effusion and bilateral lower lobe atelectasis. CT brain did not show any acute finding. She received IV fluid, no clinical bleeding despite elevated PT / PTT. This morning she is responsive but agitated and also moaning in pain. Past Medical History Past Medical History (Chronic Problems): Chronic Problems Liver metastasis Neuroendocrine tumorm unknown primary Metabolic encephalopathy Allergies No Known Allergies Allergy (Verified 12/31/18 15:08) Home Medications: Ambulatory Orders Medication Instructions Recorded Haloperidol [Haldol] 0.5 mg PO BID 12/31/18 Ondansetron [Zofran Odt] 8 mg PO Q8H PRN PRN 12/31/18 Sennosides [Senna] 2 tab PO DAILY 12/31/18 morphine SR tablet [MS Contin] 15 mg PO Q8H 12/31/18 morphine solution (IR) [Roxanol 5 - 10 mg PO Q3H PRN 12/31/18 (IR oral solution)] Surgical History: - - Tubal ligation Smoking Status: Never smoker Alcohol: None Drugs: None Review of Systems Respiratory: Reports: Shortness of Breath Unable to obtain accurate/complete ROS d/t: Patient is very groggy, confused VTE Information - Inpt Only VTE Present on Admission: No VTE Mechan Device Prophylaxis: None VTE Pharm Prophylaxis ordered?: Yes Patient Problems: Active and Suspected Problems acute on chr liver failure (Acute) Severe sepsis (Acute) - Physical Exam General: Lethargic, responds appropriately HEENT: Atraumatic, PERRLA, EOMI, Normocephalic Oral: Dry Mucosa Neck: Supple, No JVD, Negative Carotid Bruits Lungs: No rhonchi, No wheeze, No rales, Diminished - Air entry is diminished in bilateral lung bases. Cardiovascular: Regular Rhythm, Normal S1, Normal S2, No murmurs, Tachycardic Abdomen: Bowel Sounds Present, Soft, Non-Distended, Tender - Tenderness present mainly over right upper quadrant and mid abdomen. Liver is enlarged, no ascites. Extremities: No edema, Capillary Refill Less than 3 Seconds Skin: No rashes, No breakdown Musculoskeletal: No Tenderness to Palpation of Joints or Extremities, Arthritic Changes Neurological: Cranial nerves II-XII grossly intact, Deep Tendon Reflexes 2+/4 and Symmetrical, - - Patient is lethargic and groggy Psych/Mental Status: Normal Affect, Appropriate Vital Signs Temp Pulse Resp BP Pulse Ox 98.3 F 120 H 20 H 140/79 H 92 12/31/18 18:24 12/31/18 19:00 12/31/18 19:00 12/31/18 19:00 12/31/18 19:00 Oxygen Flow Rate (L/min) 2 Oxygen Delivery Method Nasal Cannula Weight: 223 lb 8.78 oz Body Mass Index (BMI) 32.1 Laboratory Results 12/31/18 15:30: WBC Not Reportable, Corrected WBC 7.1, RBC 4.54, Hgb 13.5, Hct 41.4, MCV 91.2, MCH 29.7, MCHC 32.6, RDW Std Deviation 47.5 H, RDW Coeff of Melissa 14.6, Plt Count 78 L, MPV 10.7, Neut % (Auto) Not Reportable, Absolute Neuts (auto) 4.2, Absolute Lymphs (auto) 2.34, Absolute Nucleated RBC 0.73, Neutrophils % (Manual) 46 L, Band Neutrophils % 13 H, Lymphocytes % (Manual) 33, Monocytes % (Manual) 6, Eosinophils % (Manual) 2, Nucleated RBC % 8.9 H, Nucleated RBCs/100 WBC 14 H, Diff Path Review October, Platelet Estimate MOD DEC, RBC Morphology N CYTIC, Polychromasia 1+ 12/31/18 15:30: Sodium 128 L, Potassium 5.3 H, Chloride 95 L, Carbon Dioxide 23.0, Anion Gap 10, BUN 39 H, Creatinine 1.07 H, Estim Creat Clear Calc 56.68, Est GFR (MDRD) Af Amer 66, Est GFR (MDRD) Non-Af 55 L, BUN/Creatinine Ratio 36.4 H, Glucose 117 H, Calcium 8.7, Total Bilirubin 5.90 H, Direct Bilirubin 4.46 H, AST 997 H, ALT 245 H, Alkaline Phosphatase 949 H, Troponin I < 0.015, Total Protein 5.8 L, Albumin 2.5 L, Globulin 3.3 12/31/18 15:30: Lactic Acid 4.4 H* 12/31/18 15:30: Ammonia 95.0 H 12/31/18 15:30: D-Dimer Quant (PE/DVT) > 20.00 H* 12/31/18 15:50: PT 17.9 H, INR 1.5, APTT 39.4 H 12/31/18 16:10: Urine Color DARK YELLOW, Urine Clarity Clear, Urine pH 5.0, Ur Specific [place] 1.020, Urine Protein 30 H, Urine Glucose (UA) Normal, Urine Ketones 5 H, Urine Occult Blood 25 H, Urine Nitrite Positive H, Urine Bilirubin 6 H, Urine Urobilinogen 8 H, Ur Leukocyte Esterase 25 H, Urine RBC 0 SEEN, Urine WBC 0-5 SEEN, Ur Squamous Epith Cells 5-10 SEEN, Urine Bacteria 1+, Hyaline Casts 0-5 SEEN, Fine Granular Casts 0-5 SEEN, Urine Mucus RARE 12/31/18 20:35: Lactic Acid 3.0 H 12/31/18 20:35: Magnesium 2.6 12/31/18 20:38: POC Glucose 112 H 12/31/18 20:40: MRSA (PCR) Negative 12/31/18 23:13: Lactic Acid 2.7 H 01/01/19 03:35: WBC PERCUSSION INSTRUMENT TUNER, Corrected WBC 7.7, RBC 4.15 L, Hgb 12.5, Hct 37.6, MCV 90.6, MCH 30.1, MCHC 33.2, RDW Std Deviation 47.8 H, RDW Coeff of Melissa 14.7 H, Plt Count 72 L, MPV 11.3, Immature Gran % (Auto) 6.200 H, Neut % (Auto) 52.0, Lymph % (Auto) 29.6, White % (Auto) 11.6 H, Eos % (Auto) 0.4, Baso % (Auto) 0.2, Absolute Neuts (auto) 4.3, Absolute Lymphs (auto) 2.47, Absolute Nucleated RBC 0.98, Total Counted 100, Neutrophils % (Manual) 50, Band Neutrophils % 5, Lymphocytes % (Manual) 25, Monocytes % (Manual) 11 H, Eosinophils % (Manual) 1, Basophils % (Manual) 1, Metamyelocytes % 7 H, Nucleated RBC % 11.8 H, Nucleated RBCs/100 WBC 9 H, Diff Path Review May foll, Toxic Granulation 1+, Polychromasia 1+, Anisocytosis 3+, Macrocytosis 2+, Acanthocytes (Spur) 3+ 01/01/19 03:35: PT 19.8 H, INR 1.7 01/01/19 03:35: Sodium 135 L, Potassium 5.5 H, Chloride 101, Carbon Dioxide 22.0, Anion Gap 12, BUN 46 H, Creatinine 1.02, Estim Creat Clear Calc 49.48, Est GFR (MDRD) Af Amer 70, Est GFR (MDRD) Non-Af 58 L, BUN/Creatinine Ratio 45.1 H, Glucose 89, Calcium 8.4 L, Total Bilirubin 6.10 H, Direct Bilirubin 4.57 H, AST 1906 H, ALT 399 H, Alkaline Phosphatase 983 H, Total Protein 5.2 L, Albumin 2.4 L, Globulin 2.8 01/01/19 03:35: Lactic Acid 2.8 H Assessment/Plan All Active Problems acute on chr liver failure Metabolic encephalopathy Metastatic neuroendocrine tumor, unknown primary Intractable pain secondary to above. In summary, this is a 63-year-old female with metastatic neuroendocrine tumor, unknown primary (possible pancreas), present with acute liver failure and metabolic encephalopathy. Her metastatic cancer has progressed significantly in the last 3 weeks with fulminant liver failure & delirium. She is not a candidate for palliative chemotherapy at this point. Her palliative performance scale index score: Performance status <60%, significant anorexia, liver failure ( PT >15 sec, total bilirubin > 5.0 encephalopathy ) Indicates a very limited life expectancy (days-week). She is not a candidate for palliative chemotherapy for these reasons. Plans: Patient's values and goals of care discussed with her family today. Her son who is the DPOA along with her family decided to change patient's CODE STATUS to DNR -comfort care. Consult hospice for inpatient symptom management. Stop IV antibiotic and consider starting scheduled dose- morphine IV for pain. cc: Dr. Silvia Lr, Dr. Kiko Mckoy, Dr. Cody Jason
--- NOTE | 2019-01-01 09:43 | CASEMGMT ---
ICU Interdisciplinary rounds. ENT to remove trach sutures today, dc date pending ENT evaluation. Plan remains to dc to SNF on discharge. ML Rosales working on new precertification for SNF. Rachid NOVAKN RN ACM
--- NOTE | 2019-01-01 10:09 | CASEMGMT ---
Social Work Per RN, pt and family met with Dr. Lr and are requesting a hospice referral for inpatient hospice. SW met with pt sister Jasmine and brother. Jasmine states pt does not have a health care POA and oldest son Aniket drove in from out of [place]. He is currently home resting. Jasmine confirmed family is requesting inpatient hospice and that Aniket is agreeable. Referral made to Akila at [facility] and clinical information faxed. Akila will set up a time with Jasmine and Jasmine will contact Aniket so he can be here for the meeting. RN notified of plan. RENATA Us
[2019-01-01] MEDS: morphine (oral solution) 10MG/0.5ML Syringe 5 MG SL (12:00)
[2019-01-01] MEDS: LORazepam 2 MG/ML Bottle 1 MG SL (12:04)
[2019-01-01 12:10] LABS: Pathologist Review Reviewed
[2019-01-01 12:12] LABS: Pathologist Review Reviewed
[2019-01-01] MEDS: proCHLORPERazine 10 MG/2 ML Vial 5 MG IV (14:04)
[2019-01-01] MEDS: Morphine 4 MG/ML Syringe IV (14:04)
--- NOTE | 2019-01-01 14:25 | CHAPLAIN ---
Type of Pastoral Visit _x__ Initial Visit ___ Follow-up Visit ___ On-call Visit ___ General Patient Visit ___ Spiritual Assessment _x__ Family Conference ___ Bereavement ___ Rapid Response ___ Code Blue _x__ Other (describe below) Pastoral Care Referral From _x__ Patient _x__ Family _x__ Nurse ___ Physician ___ Fire Extinguisher Mechanic ___ Senior Hadoop Developer ___ Other (describe below) Sacrament/Intervention _x__ Active listening ___ Anointing ___ Caodaism ___ Bereavement ___ Communion _x__ Felicity exploration ___ _x__ Life review _x__ Prayer ___ Reconciliation ___ Sacrament of Sick _x__ Supportive presence ___ Wedding ___ Other (describe below) Pastoral Comments The referral stated this was an end of life visit; patient was alert and responded to questions; pt also moaned and said she was uncomfortable; RN had stated that pt had been medicated recently; hospice is scheduled to come and meet with pt and family later today; offer of support made directly to patient; offer of short visit due to discomfort of pt; pt welcomed prayer; pt said she is of the [employer] felicity but not of a local orthodox; this superintendent power spoke with various family members at different times - a son, sister, ex-, and grandson; expression of family is how quickly this has gone as pt was recently doing well; dealing with shock of situation; family that I have seen today appears very supportive and available; family open to spiritual care and support
--- NOTE | 2019-01-01 15:15 | NURSING ---
to pt bedside per family request, w/concern pt wouldnt survive ambulance ride to hospice facility. pt w/significant change in color w/gasping respers. family at bedside. reassurance given.
--- NOTE | 2019-01-01 15:25 | NURSING ---
hospice in pt room speaking w/family
--- NOTE | 2019-01-01 15:30 | NURSING ---
to pt bedside. pt apneic w/no audible heart sounds. family at bedside, Dr. Roman notifeid.
--- NOTE | 2019-01-01 19:24 | PCM.HOSP.N ---
Hospitalist Note I was called to examine the patient today, nursing reports that she was without vital signs at 3:30 PM today, when I checked the patient, there is no spontaneous respirations no heart rate and no blood pressure. 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 I talked with the patient's son, he did not want the patient to have an autopsy. Patient's fianc? was present also at the time of her .
[2019-01-03 04:02] LABS: Differential Indicated MANUAL DIFF
[2019-01-03 04:04] LABS: Absolute Lymphocyte Count 2.09 X10^3/uL (0.83-4.51); Absolute Neutrophil Count 4.6 X10^3/uL (2.0-7.7); Lymphocyte # 2.09 X10^3/ul (4.0); Neutrophil # 4.59 X10^3/uL (2.7-7.7)
[2019-01-03 04:06] LABS: Platelet Estimate MOD DEC (ADEQ)
--- NOTE | 2019-01-03 08:13 | PCM.DEATH ---
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 Work-up in the emergency room showed an elevated lactic acid and elevated liver enzymes. CT of the abdomen was obtained which showed diffuse hepatic metastases with a lesion in the body the pancreas possibly indicating a neoplasm. CT of the brain was unremarkable, CTA of the chest was negative for PE. Patient was admitted to ICU, discussions were carried out with the family and family requested hospice consultation. On 01/01/2019, patient abruptly stopped breathing went into asystole and passed at 3:30 PM. Patient's family requested no autopsy. Code Visit Inpatient E&M: [id number] [facility]
== END 2019-01-01 15:30 | DRG 843 ==
LOC: ED 16:36 → ICU 19:55
PROVIDERS: Hospitalist; Admitting Provider Internal Medicine; Emergency Provider Emergency Medicine; Visit Provider Internal Medicine
DX: C7A.8 Other malignant neuroendocrine tumors (principal); G93.41 Metabolic encephalopathy; K72.00 Acute and subacute hepatic failure without coma; C7B.8 Other secondary neuroendocrine tumors; Z66 Do not resuscitate; Z51.5 Encounter for palliative care
CPT/HCPCS: 70450; 71045; 71275; 74177; 80048; 80076; 81001; 82140; 82962; 83605; 83735; 84484; 85025; 85379; 85610; 85730; 87040; 87641; 93005; 97802; 99285; J7030; Q9967; A4216; J2310; J2405